=== PATIENT | female | born 1935 | race Caucasian/White ===

== ENCOUNTER 2023-11-25 16:55 | Inpatient (IN) | payer MEDICARE, OTHER ==
[~2023-11-25] VITALS: Ht 152.4 cm; Wt 75.7 kg
[2023-11-25 17:50] LABS: BASOPHILS # (AUTO) 0.1 K/uL (0.0-0.2); BASOPHILS % (AUTO) 0.8 % (0.0-2.0); EOSINOPHILS # (AUTO) 0.1 K/uL (0.0-0.7); EOSINOPHILS % (AUTO) 1.2 % (0.0-6.0); HEMATOCRIT 25 % (33-45); HEMOGLOBIN 7.7 g/dL (11.5-14.8); LYMPHOCYTES # (AUTO) 1.5 K/uL (0.8-4.8); LYMPHOCYTES % (AUTO) 16.7 % (20.0-44.0); MEAN CORPUSCULAR HEMOGLOBIN 24 PG (26.0-33.0); MEAN CORPUSCULAR HGB CONC 31 g/dl (31.0-36.0); MEAN CORPUSCULAR VOLUME 78 fL (82-100); MONOCYTES # (AUTO) 0.6 K/uL (0.1-1.30); MONOCYTES % (AUTO) 6.6 % (2.0-12.0); NEUTROPHILS # (AUTO) 6.9 K/uL (1.8-8.9); NEUTROPHILS % (AUTO) 74.7 % (43.0-81.0); PLATELET COUNT (AUTO) 288 K/uL (150-450); RED BLOOD CELL COUNT(AUTO) 3.19 MIL/uL (4.0-5.2); RED CELL DISTRIBUTION WIDTH 19.8 % (11.5-15.0); WHITE BLOOD COUNT (AUTO) 9.2 K/uL (4.3-11.0)
[2023-11-25 18:06] LABS: INR 1.21 (0.91-1.10); PARTIAL THROMBOPLASTIN TIME 27.9 SEC (24.3-34.3); PROTHROMBIN TIME 12.7 SECS (9.2-11.1)
[2023-11-25 18:22] LABS: CALCIUM, SERUM 8.8 mg/dL (8.5-10.1); CARBON DIOXIDE 26 mmol/L (21-32); CHLORIDE 104 mmol/L (98-107); CREATININE 0.8 mg/dL (0.6-1.3); GLUCOSE 130 mg/dL (74-106); POTASSIUM 4.4 mmol/L (3.5-5.1); SODIUM SERUM 140 mmol/L (136-145); UREA NITROGEN, BLOOD 18 mg/dL (7-18)
[2023-11-25 18:33] LABS: ALANINE AMINOTRANSFERASE 7 U/L (12-78); ALBUMIN 2.6 g/dL (3.4-5.0); ALKALINE PHOSPHATASE 31 U/L (46-116); ASPARTATE AMINOTRANSFERASE 7 U/L (15-37); BILIRUBIN,DIRECT 0.2 mg/dL (0.0-0.2); BILIRUBIN,TOTAL 0.4 mg/dL (0.2-1.0); NT-PRO BNP 5164 pg/mL (0-125); TOTAL PROTEIN, SERUM 7.5 g/dL (6.4-8.2)
[2023-11-25] MEDS ORDERED: FUROSEMIDE 40 MG/4 ML VIAL ONE (19:31)
[2023-11-25] MEDS: FUROSEMIDE 40 MG/4 ML VIAL IV ONE (19:34)
[2023-11-25 20:09] LABS: LYMPHOCYTES % (MANUAL) 22 % (16-48); MONOCYTES % (MANUAL) 4 % (0-11.0); NEUTROPHILS % (MANUAL) 74 (42-76)
[2023-11-25 20:10] LABS: ANISOCYTOSIS 1+; OVALOCYTES 1+; PLATELET ESTIMATE ADEQUATE
[2023-11-25] MEDS ORDERED: ALBUTEROL FS 2.5 MG/0.5 ML VIAL.NEB NEB PRN (20:30)
[2023-11-25] MEDS ORDERED: hydrALAZINE HCL IV 20 MG VIAL IV PRN (20:30)
[2023-11-25] MEDS ORDERED: MORPHINE SULFATE INJ 2 MG/ML DISP.SYRIN IV PRN (20:30)
[2023-11-25] MEDS ORDERED: DEXTROSE 50%-WATER 50 ML DISP.SYRIN IV PRN (20:30)
[2023-11-25] MEDS ORDERED: ONDANSETRON HCL/PF 4 MG/2 ML VIAL IVP PRN (20:30)
[2023-11-25] MEDS: BLOOD SUGAR DIAGNOSTIC 1 EACH STRIP IN SCH (21:58)
[2023-11-25] MEDS: HEPARIN SODIUM, PORCINE 5000 UNITS/1 ML VIAL SQ SCH (22:04)
[2023-11-25] MEDS: ACETAMINOPHEN 325 MG TABLET PO PRN (22:37)
[2023-11-26] VITALS (13 sets, daily range): BP systolic 105–119; BP diastolic 42–85; TEMP 94.6–98.2; O2SAT 96–100
[2023-11-26] MEDS ORDERED: IPRATROPIUM/ALBUTEROL INHALER IH SCH
[2023-11-26] MEDS: ALBUTEROL FS 2.5 MG/0.5 ML VIAL.NEB NEB SCH (01:49)
[2023-11-26] MEDS: IPRATROPIUM NEB FS 0.5 MG/2.5 ML AMPUL.NEB IH SCH (01:49)
[2023-11-26 07:47] LABS: BASOPHILS # (AUTO) 0.1 K/uL (0.0-0.2); BASOPHILS % (AUTO) 0.8 % (0.0-2.0); EOSINOPHILS # (AUTO) 0.2 K/uL (0.0-0.7); HEMATOCRIT 24 % (33-45); HEMOGLOBIN 7.6 g/dL (11.5-14.8); LYMPHOCYTES # (AUTO) 1.8 K/uL (0.8-4.8); LYMPHOCYTES % (AUTO) 26.5 % (20.0-44.0); MEAN CORPUSCULAR HEMOGLOBIN 25 PG (26.0-33.0); MEAN CORPUSCULAR HGB CONC 32 g/dl (31.0-36.0); MEAN CORPUSCULAR VOLUME 78 fL (82-100); MONOCYTES # (AUTO) 0.5 K/uL (0.1-1.30); MONOCYTES % (AUTO) 7.1 % (2.0-12.0); NEUTROPHILS # (AUTO) 4.2 K/uL (1.8-8.9); NEUTROPHILS % (AUTO) 62.6 % (43.0-81.0); PLATELET COUNT (AUTO) 247 K/uL (150-450); RED BLOOD CELL COUNT(AUTO) 3.04 MIL/uL (4.0-5.2); RED CELL DISTRIBUTION WIDTH 19.9 % (11.5-15.0); WHITE BLOOD COUNT (AUTO) 6.7 K/uL (4.3-11.0)
[2023-11-26 07:51] LABS: ALANINE AMINOTRANSFERASE 13 U/L (12-78); ALBUMIN 2.5 g/dL (3.4-5.0); ALKALINE PHOSPHATASE 31 U/L (46-116); ASPARTATE AMINOTRANSFERASE 12 U/L (15-37); BILIRUBIN,TOTAL 0.3 mg/dL (0.2-1.0); CALCIUM, SERUM 8.6 mg/dL (8.5-10.1); CARBON DIOXIDE 30 mmol/L (21-32); CHLORIDE 105 mmol/L (98-107); CREATININE 0.9 mg/dL (0.6-1.3); GLUCOSE 119 mg/dL (74-106); MAGNESIUM 1.7 mg/dL (1.8-2.4); PHOSPHORUS 5.2 mg/dL (2.5-4.9); POTASSIUM 3.6 mmol/L (3.5-5.1); SODIUM SERUM 143 mmol/L (136-145); TOTAL PROTEIN, SERUM 7.3 g/dL (6.4-8.2); UREA NITROGEN, BLOOD 18 mg/dL (7-18)
[2023-11-26 08:11] LABS: IRON, SERUM 18 ug/dl (50-175); TOTAL IRON BINDING CAPACITY 324 ug/dl (250-450)
[2023-11-26 08:25] LABS: FERRITIN 16 ng/mL (8-388)
[2023-11-26] MEDS: FUROSEMIDE 20 MG/2 ML VIAL IV SCH (08:48)
[2023-11-26] MEDS ORDERED: OMEP1CAP24 PO (09:49)
[2023-11-26] MEDS ORDERED: AMLO-213 PO (09:49)
[2023-11-26] MEDS ORDERED: POTA10TA21 PO (09:49)
[2023-11-26] MEDS ORDERED: ASPI-1420 PO (09:49)
[2023-11-26] MEDS ORDERED: ROSU20TA32 PO (09:49)
[2023-11-26] MEDS ORDERED: TRAZ-252 PO (09:49)
[2023-11-26] MEDS ORDERED: EMPA25TA PO (09:49)
[2023-11-26] MEDS ORDERED: METF-867 PO (09:49)
[2023-11-26] MEDS ORDERED: FURO40TA5 PO (09:49)
[2023-11-26] MEDS ORDERED: LEVO100T9 PO (09:49)
[2023-11-26] MEDS ORDERED: DRON400T6 PO (09:49)
[2023-11-26] MEDS ORDERED: APIX5TAB PO (09:49)
[2023-11-26] MEDS ORDERED: SITA50TA PO (09:49)
[2023-11-26] MEDS: ENOXAPARIN SODIUM 40 MG/0.4 ML DISP.SYRIN SQ SCH (10:00)
[2023-11-26] MEDS: INSULIN REGULAR, HUMAN 100 UNIT/ML 3 ML VIAL SQ PRN (10:06)
[2023-11-26 10:13] LABS: THYROID STIMULATING HORMONE 3.98 uIU/mL (0.358-3.74)
[2023-11-26] MEDS: FUROSEMIDE 40 MG/4 ML VIAL IV SCH (10:46)
[2023-11-26] MEDS: ASPIRIN 81 MG TAB.CHEW PO SCH (10:46)
[2023-11-26] MEDS: POTASSIUM CHLORIDE 20 MEQ TAB.PRT.SR PO SCH (10:46)
[2023-11-26 11:15] LABS: MAGNESIUM 1.6 mg/dL (1.8-2.4); PHOSPHORUS 5.2 mg/dL (2.5-4.9)
[2023-11-26] MEDS: MAGNESIUM OXIDE 400 MG TABLET PO ONE (13:14)
[2023-11-26] MEDS: LINAGLIPTIN 5 MG TABLET PO SCH (13:46)
[2023-11-26] MEDS: EMPAGLIFLOZIN 25 MG TABLET PO SCH (13:47)
[2023-11-26] MEDS: SOD FERRIC GLUC 125 MG in IV NS 0.9% 100 ML IV SCH (14:44)
[2023-11-26] MEDS ORDERED: ENOXAPARIN SODIUM 40 MG/0.4 ML DISP.SYRIN SQ SCH (15:30)
[2023-11-26] MEDS ORDERED: APIXABAN 5 MG TABLET PO SCH (17:00)
[2023-11-26] MEDS: ATORVASTATIN 40 MG TABLET PO SCH (21:42)
[2023-11-26] MEDS: TRAZODONE 50 MG TABLET PO PRN (22:59)
[2023-11-27] VITALS (11 sets, daily range): BP systolic 90–110; BP diastolic 45–64; TEMP 97.7–98.4; O2SAT 96–100
[2023-11-27 07:06] LABS: BASOPHILS % (AUTO) 0.6 % (0.0-2.0); EOSINOPHILS # (AUTO) 0.2 K/uL (0.0-0.7); HEMATOCRIT 26 % (33-45); HEMOGLOBIN 8.2 g/dL (11.5-14.8); LYMPHOCYTES # (AUTO) 1.1 K/uL (0.8-4.8); LYMPHOCYTES % (AUTO) 13.5 % (20.0-44.0); MEAN CORPUSCULAR HEMOGLOBIN 24 PG (26.0-33.0); MEAN CORPUSCULAR HGB CONC 31 g/dl (31.0-36.0); MEAN CORPUSCULAR VOLUME 78 fL (82-100); MONOCYTES # (AUTO) 0.6 K/uL (0.1-1.30); MONOCYTES % (AUTO) 7.6 % (2.0-12.0); NEUTROPHILS # (AUTO) 6.3 K/uL (1.8-8.9); NEUTROPHILS % (AUTO) 76.3 % (43.0-81.0); PLATELET COUNT (AUTO) 266 K/uL (150-450); RED BLOOD CELL COUNT(AUTO) 3.38 MIL/uL (4.0-5.2); WHITE BLOOD COUNT (AUTO) 8.3 K/uL (4.3-11.0)
[2023-11-27 07:26] LABS: ALANINE AMINOTRANSFERASE 14 U/L (12-78); ALBUMIN 2.7 g/dL (3.4-5.0); ALKALINE PHOSPHATASE 40 U/L (46-116); ASPARTATE AMINOTRANSFERASE 18 U/L (15-37); BILIRUBIN,TOTAL 0.3 mg/dL (0.2-1.0); CARBON DIOXIDE 33 mmol/L (21-32); CHLORIDE 101 mmol/L (98-107); CREATININE 1.1 mg/dL (0.6-1.3); GLUCOSE 177 mg/dL (74-106); MAGNESIUM 1.7 mg/dL (1.8-2.4); PHOSPHORUS 4.7 mg/dL (2.5-4.9); POTASSIUM 3.9 mmol/L (3.5-5.1); SODIUM SERUM 143 mmol/L (136-145); UREA NITROGEN, BLOOD 18 mg/dL (7-18)
[2023-11-27] MEDS: AMIODARONE 150 MG in IV D5W 100 ML IV ONE (07:44)
[2023-11-27] MEDS: AMIODARONE 450 MG in IV D5W 241 ML IV PRN (08:22)
[2023-11-27] MEDS: LEVOTHYROXINE SODIUM 100 MCG TABLET PO SCH (08:50)
[2023-11-27] MEDS: DRONEDARONE HYDROCHLORIDE 400 MG TABLET PO SCH (09:00)
[2023-11-27] MEDS: AMLODIPINE BESYLATE 10 MG TABLET PO SCH (09:00)
[2023-11-27] MEDS: ASPIRIN EC 81 MG TABLET.DR PO SCH (09:01)
[2023-11-27] MEDS: POTASSIUM CITRATE 5 MEQ TABLET.SA PO SCH (09:16)
[2023-11-27] MEDS: APIXABAN 5 MG TABLET PO SCH (10:48)
[2023-11-27] MEDS: Magnesium 1GM/D5W 100ML PREMIX 100 ML IV SCH (10:49)
[2023-11-27] MEDS: IV NS 0.9% 250 ML IV PRN (10:52)
[2023-11-28] VITALS (15 sets, daily range): BP systolic 99–112; BP diastolic 58–78; TEMP 98.1–99.3; O2SAT 97–100
[2023-11-28 06:07] LABS: *SPE A/G RATIO 0.7 (0.7-1.7); *SPE ALBUMIN 2.8 g/dL (2.9-4.4); *SPE ALPHA-1-GLOBULIN 0.3 g/dL (0.0-0.4); *SPE ALPHA-2-GLOBULIN 0.9 g/dL (0.4-1.0); *SPE BETA GLOBULIN 1.2 g/dL (0.7-1.3); *SPE M-SPIKE Not Observed g/dL (Not Observed); *SPE PROTEIN TOTAL 6.8 g/dL (6.0-8.5); *SPEGAMMA GLOBULIN 1.6 g/dL (0.4-1.8)
[2023-11-28 07:31] LABS: BASOPHILS % (AUTO) 0.5 % (0.0-2.0); EOSINOPHILS # (AUTO) 0.2 K/uL (0.0-0.7); EOSINOPHILS % (AUTO) 1.7 % (0.0-6.0); HEMATOCRIT 25 % (33-45); HEMOGLOBIN 8.1 g/dL (11.5-14.8); LYMPHOCYTES % (AUTO) 11.4 % (20.0-44.0); MEAN CORPUSCULAR HEMOGLOBIN 25 PG (26.0-33.0); MEAN CORPUSCULAR HGB CONC 32 g/dl (31.0-36.0); MEAN CORPUSCULAR VOLUME 78 fL (82-100); MONOCYTES # (AUTO) 0.7 K/uL (0.1-1.30); MONOCYTES % (AUTO) 8.3 % (2.0-12.0); NEUTROPHILS # (AUTO) 6.9 K/uL (1.8-8.9); NEUTROPHILS % (AUTO) 78.1 % (43.0-81.0); PLATELET COUNT (AUTO) 271 K/uL (150-450); RED BLOOD CELL COUNT(AUTO) 3.22 MIL/uL (4.0-5.2); RED CELL DISTRIBUTION WIDTH 19.6 % (11.5-15.0); WHITE BLOOD COUNT (AUTO) 8.8 K/uL (4.3-11.0)
[2023-11-28 08:02] LABS: CALCIUM, SERUM 8.9 mg/dL (8.5-10.1); CARBON DIOXIDE 28 mmol/L (21-32); CHLORIDE 102 mmol/L (98-107); GLUCOSE 173 mg/dL (74-106); MAGNESIUM 1.7 mg/dL (1.8-2.4); POTASSIUM 3.9 mmol/L (3.5-5.1); SODIUM SERUM 139 mmol/L (136-145); UREA NITROGEN, BLOOD 18 mg/dL (7-18)
[2023-11-28] MEDS: Magnesium 1GM/D5W 100ML PREMIX 100 ML IV SCH (09:40)
[2023-11-28] MEDS: CLOTRIMAZOLE 1% 15 GM TUBE TP SCH (16:25)
[2023-11-28] MEDS: LACTULOSE 10 G/15 ML UDC (PYXIS) PO ONE (17:14)
[2023-11-29] VITALS (27 sets, daily range): BP systolic 99–125; BP diastolic 44–66; TEMP 98.5–99; O2SAT 90–100
[2023-11-29 07:07] LABS: CARBON DIOXIDE 30 mmol/L (21-32); CHLORIDE 106 mmol/L (98-107); CREATININE 0.9 mg/dL (0.6-1.3); GLUCOSE 132 mg/dL (74-106); MAGNESIUM 2.1 mg/dL (1.8-2.4); POTASSIUM 3.8 mmol/L (3.5-5.1); SODIUM SERUM 143 mmol/L (136-145); UREA NITROGEN, BLOOD 16 mg/dL (7-18)
[2023-11-29] MEDS: POLYETHYLENE GLYCOL 3350 17 GM POWD.PACK PO SCH (07:56)
[2023-11-29] MEDS ORDERED: ANESTHESIA TRAY IN PYXIS 1 EA TRAY MC ONE (08:30)
[2023-11-29] MEDS: AMIODARONE HCL 200 MG TABLET PO SCH (10:22)
== END 2023-11-29 13:09 | disposition home health service (06) | DRG 280 ==
LOC: ER 17:09 → TELE 20:26 → TELE1 11-27 06:18 → TELE-TD 11-27 06:41 → TELE1 11-28 13:53 → ICU 11-29 08:30
PROVIDERS: ADMIT Internal Medicine; ATTEND Nurse Practitioner Acute Care
PROC: 5A2204Z Restoration of Cardiac Rhythm, Single (ICD-10-PCS; principal; 2023-11-29)
DX: I13.0 Hypertensive heart and chronic kidney disease with heart failure and stage 1 through stage 4 chronic kidney disease, or unspecified chronic kidney disease (principal); I50.33 Acute on chronic diastolic (congestive) heart failure; I21.A1 Myocardial infarction type 2; J96.01 Acute respiratory failure with hypoxia; E44.0 Moderate protein-calorie malnutrition; I48.20 Chronic atrial fibrillation, unspecified; E72.59 Other disorders of glycine metabolism; N17.9 Acute kidney failure, unspecified; Z95.1 Presence of aortocoronary bypass graft; I25.10 Atherosclerotic heart disease of native coronary artery without angina pectoris; E11.22 Type 2 diabetes mellitus with diabetic chronic kidney disease; N18.9 Chronic kidney disease, unspecified; E78.5 Hyperlipidemia, unspecified; E83.42 Hypomagnesemia; E66.9 Obesity, unspecified; D50.9 Iron deficiency anemia, unspecified; Z20.822 Contact with and (suspected) exposure to COVID-19; E88.09 Other disorders of plasma-protein metabolism, not elsewhere classified; Z68.32 Body mass index [BMI] 32.0-32.9, adult
CPT/HCPCS: 36415; 71045-TC; 80048-TC; 80053-TC; 80061-TC; 80076-TC; 82728-TC; 82962-TC; 83540-TC; 83735-TC; 83880; 84100-TC; 84155; 84165; 84439-TC; 84443-TC; 84484-TC; 85025-TC; 85730-TC; 93307-TC; 94760-TC; 94762-TC; 94799-TC; A4223; G0378; J0282; J1644; J1650; J1815; J1940; J2704; J2916; J3475; J3490; J7030; J7050; J7060